=== PATIENT | female | born 1985 | race Two or more races ===

== ENCOUNTER 2024-12-21 20:35 | Emergency (ER) | payer OTHER ==
[~2024-12-21] VITALS: Ht 165.1 cm; Wt 63.5 kg
[~2024-12-21 20:35] MED LIST: ZITHROMAX PO
[2024-12-21] MEDS ORDERED: KETOROLAC TROMETHAMINE 30 MG VIAL IM STA (22:29)
[2024-12-21] MEDS ORDERED: KETOROLAC TROMETHAMINE 30 MG VIAL ONE (23:19)
== END 2024-12-21 23:38 | disposition home or self-care (01) ==
LOC: ER 21:09
DX: J37.0 Chronic laryngitis (principal)